=== PATIENT | female | born 1955 | race Caucasian/White ===

== ENCOUNTER 2019-03-26 13:14 | Emergency (ER) | payer SELFPAY ==
[2019-03-26] MEDS ORDERED: IBUPROFEN 400 MG TAB ONE (14:03)
--- NOTE | 2019-03-26 15:12 | ER ---
Nurse's Notes [facility] Name: Joycelyn Abraham Age: 63 yrs Sex: Female : 1955 Arrival Date: 03/26/2019 Time: 13:16 Bed 18 Private MD: Diagnosis: Sprain of medial collateral ligament of left knee;Sprain of other ligament of left ankle;Sprain of unspecified ligament of left ankle Presentation: 03/26 13:23 Presenting complaint: Left knee pain after syncopal episode while standing 4 days ago. hb Pt reports being "under a lot of stress lately.". Transition of care: patient was not received from another setting of care. Onset of symptoms was March 22, 2019. Risk Assessment: Do you want to hurt yourself or someone else? Patient reports no desire to harm self or others. Initial Sepsis Screen: Does the patient meet any 2 criteria? No. Patient's initial sepsis screen is negative. Does the patient have a suspected source of infection? No. Patient's initial sepsis screen is negative. Care prior to arrival: None. 13:23 Method Of Arrival: Ambulatory 13:23 Acuity: RAÚL 3 hb Triage Assessment: 13:30 Injury Description: pt. reports rolling her left ankle. rb1 Historical: - Allergies: 13:25 No Known Allergies; hb - Immunization history:: Adult Immunizations up to date. - Coronavirus screen:: The patient has NOT traveled to [place], [place], or [place] in the past 14 days. The patient has NOT had contact with known/suspected case of Coronavirus? Proceed with normal triage procedures. - Social history:: Smoking status: Patient reports the use of cigarette tobacco products, smokes one-half pack cigarettes per day. - Ebola Screening: : No symptoms or risks identified at this time. Screenin:30 Abuse screen: Denies threats or abuse. Nutritional screening: No deficits noted. rb1 Tuberculosis screening: No symptoms or risk factors identified. Fall Risk None identified. Assessment: 13:30 General: Appears in no apparent distress. comfortable, Behavior is calm, cooperative. rb1 Pain: Complains of pain in left knee, left ankle Pain currently is 3 out of 10 on a pain scale. Pain began Thursday. Neuro: Level of Consciousness is awake, alert, obeys commands, Oriented to person, place, time, situation. Cardiovascular: Capillary refill < 3 seconds is brisk in bilateral fingers. Respiratory: Airway is patent Respiratory effort is even, unlabored, Respiratory pattern is regular, symmetrical. GI: No signs and/or symptoms were reported involving the gastrointestinal system. : No signs and/or symptoms were reported regarding the genitourinary system. Derm: Skin is pink, warm \\T\\ dry. Musculoskeletal: Swelling present in left knee, left ankle. 14:30 Reassessment: Patient appears in no apparent distress at this time. No changes from rb1 previously documented assessment. 15:23 Reassessment: Discharge pending due to Dr. Reed needing to speak with the pt. rb1 15:30 Reassessment: Patient appears in no apparent distress at this time. Patient and/or rb1 family updated on plan of care and expected duration. Pain level reassessed. Patient is alert, oriented x 3, equal unlabored respirations, skin warm/dry/pink. 15:41 Reassessment: Dr. Reed is in another pt. room, discharge pending due to him needing rb1 to speak with the pt. 16:25 Reassessment: Patient appears in no apparent distress at this time. No changes from rb1 previously documented assessment. Pt. was offered crutches but refused them because she has a walker at home that she would rather use. Vital Signs: 13:25 BP 142 / 81; Pulse 75; Resp 16; Temp 97.4; Pulse Ox 100% on R/A; Weight 90.72 kg; hb Height 5 ft. 8 in. (172.72 cm); Pain 3/10; 14:25 BP 113 / 70; Pulse 70; Resp 17; Pulse Ox 98% on R/A; rb1 15:25 BP 132 / 54; Pulse 67; Resp 16; Pulse Ox 96% on R/A; rb1 16:25 BP 137 / 56; Pulse 70; Resp 18; Pulse Ox 96% ; rb1 13:25 Body Mass Index 30.41 (90.72 kg, 172.72 cm) hb ED Course: 13:16 Patient arrived in ED. es 13:25 Theo Reed MD is Attending Physician. kdr 13:25 Triage completed. hb 13:25 Arm band placed on. hb 13:30 Patient has correct armband on for positive identification. Bed in low position. Call rb1 light in reach. Side rails up X 1. Pulse ox on. NIBP on. 13:32 Mirella Zaldivar, RN is Primary Nurse. rb1 15:33 Knee Left 3 View XRAY In Process Unspecified. EDMS 15:33 Ankle Left 3 View XRAY In Process Unspecified. EDMS 16:28 No provider procedures requiring assistance completed. Patient did not have IV access rb1 during this emergency room visit. Administered Medications: 14:03 Drug: Ibuprofen 800 mg Route: PO; 14:45 Follow up: Response: No adverse reaction; Pain is decreased rb1 Outcome: 15:11 Discharge ordered by . kdr 16:28 Discharged to home via wheelchair. rb1 16:28 Condition: stable 16:28 Discharge instructions given to patient, Instructed on discharge instructions, follow up and referral plans. medication usage, Demonstrated understanding of instructions, follow-up care, medications, Prescriptions given X 1. 16:28 Patient left the ED. rb1 Signatures: Dispatcher [employer] EDMS Theo Reed MD MD [facility] Mana Hickman Mirella Zaldivar, RN RN [facility] Vickie Baig RN RN Vini Leon Corrections: (The following items were deleted from the chart) 16:34 16:33 Patient left the ED. rb1 rb1
--- NOTE | 2019-03-26 15:12 | EDPHYS ---
Physician Documentation [facility] Name: Joycelyn Abraham Age: 63 yrs Sex: Female : 1955 Arrival Date: 03/26/2019 Time: 13:16 Bed 18 Private MD: ED Physician Theo Reed HPI: 03/26 15:16 This 63 yrs old Female presents to ER via Ambulatory with complaints of Knee kdr Injury, Foot Injury, Near Syncope. 15:16 The patient presents with decreased range of motion, an injury, pain, that is acute. kdr Context: The problem was sustained at home, resulted from the patient falling, a mis-step, Mirtha patient had a syncopal episode at home on Thursday and does not now exactly what happened. Onset: The symptoms/episode began/occurred suddenly, 2 day(s) ago. Modifying factors: The symptoms are alleviated by nothing. the symptoms are aggravated by movement, weight bearing. Associated signs and symptoms: The patient has no apparent associated signs or symptoms. Treatment prior to arrival includes: no previous treatment. Severity of symptoms: At their worst the symptoms were mild, in the emergency department the symptoms are unchanged. The patient has not experienced similar symptoms in the past. Historical: - Allergies: 13:25 No Known Allergies; hb - Immunization history:: Adult Immunizations up to date. - Coronavirus screen:: The patient has NOT traveled to [place], [place], or [place] in the past 14 days. The patient has NOT had contact with known/suspected case of Coronavirus? Proceed with normal triage procedures. - Social history:: Smoking status: Patient reports the use of cigarette tobacco products, smokes one-half pack cigarettes per day. - Ebola Screening: : No symptoms or risks identified at this time. ROS: 15:16 Constitutional: Negative for fever, chills, and weight loss, Eyes: Negative for injury, kdr pain, redness, and discharge, Neck: Negative for injury, pain, and swelling, Cardiovascular: Negative for chest pain, palpitations, and edema. 15:16 MS/extremity: Positive for injury or acute deformity, decreased range of motion, pain, swelling, tenderness, of the left lateral ankle, posterior aspect of left knee, left medial ankle and left knee. Exam: 15:16 Constitutional: This is a well developed, well nourished patient who is awake, alert, kdr and in no acute distress. Head/Face: Normocephalic, atraumatic. 15:16 Musculoskeletal/extremity: Extremities: grossly normal except: noted in the left lateral ankle, posterior aspect of left knee, left medial ankle and left knee: decreased ROM, pain, swelling, tenderness, Minor - the injuries occurred two days ago and she has been weight bearing, ROM: Circulation is intact in all extremities. Sensation intact. Compartment Syndrome exam of affected extremity: is normal. no pain, no numbness, no tingling, no sensation deficit, no palor, no weak pulses. Vital Signs: 13:25 BP 142 / 81; Pulse 75; Resp 16; Temp 97.4; Pulse Ox 100% on R/A; Weight 90.72 kg; hb Height 5 ft. 8 in. (172.72 cm); Pain 3/10; 14:25 BP 113 / 70; Pulse 70; Resp 17; Pulse Ox 98% on R/A; rb1 15:25 BP 132 / 54; Pulse 67; Resp 16; Pulse Ox 96% on R/A; rb1 16:25 BP 137 / 56; Pulse 70; Resp 18; Pulse Ox 96% ; rb1 13:25 Body Mass Index 30.41 (90.72 kg, 172.72 cm) hb MDM: 15:11 Patient medically screened. kdr 15:38 Data reviewed: vital signs, nurses notes, radiologic studies. Counseling: I had a kdr detailed discussion with the patient and/or guardian regarding: the historical points, exam findings, and any diagnostic results supporting the discharge/admit diagnosis, radiology results, the need for outpatient follow up. 03/26 13:51 Order name: Knee Left 3 View XRAY [facility] 03/26 13:51 Order name: Ankle Left 3 View XRAY [facility] 03/26 15:16 Order name: Didier wrap-joint: Left knee and ankle; Complete Time: 15:42 kdr Administered Medications: 14:03 Drug: Ibuprofen 800 mg Route: PO; 14:45 Follow up: Response: No adverse reaction; Pain is decreased rb1 Disposition: 03/26/19 15:11 Discharged to Home. Impression: Sprain of medial collateral ligament of left knee, Sprain of other ligament of left ankle, Sprain of unspecified ligament of left ankle. - Condition is Stable. - Discharge Instructions: Crutch Use, [id number], Ankle Sprain, [id number], Knee Sprain, [id number]. - Prescriptions for Tylenol- Codeine #3 300-30 mg Oral Tablet - take 2 tablets by ORAL route every 6 hours As needed; 12 tablet. - Medication Reconciliation Form, Thank You Letter, Prescription Opioid Use, Work release form form. - Follow up: Private Physician; When: 2 - 3 days; Reason: If symptoms return, Further diagnostic work-up, Recheck today's complaints, Continuance of care, Re-evaluation by your physician. - Problem is new. - Symptoms have improved. Signatures: Dispatcher [employer] EDMS Theo Reed MD MD kdr Barber, Rebecca RN RN [facility] Vickie Baig RN RN Vini Leon Corrections: (The following items were deleted from the chart) 16:33 15:11 03/26/2019 15:11 Discharged to Home. Impression: Sprain of medial collateral rb1 ligament of left knee; Sprain of other ligament of left ankle; Sprain of unspecified ligament of left ankle. Condition is Stable. Forms are Medication Reconciliation Form, Thank You Letter, Antibiotic Education, Prescription Opioid Use. Follow up: Private Physician; When: 2 - 3 days; Reason: If symptoms return, Further diagnostic work-up, Recheck today's complaints, Continuance of care, Re-evaluation by your physician. Problem is new. Symptoms have improved. kdr
--- NOTE | 2019-03-26 15:48 | RAD REPORT ---
EXAM DESCRIPTION: RAD - Knee Left 3 View - 03/26/2019 3:32 pm CLINICAL HISTORY: PAIN COMPARISON: No comparisons FINDINGS: Mild medial compartment space narrowing is present compatible with mild osteoarthritis. A small suprapatellar joint effusion is present. No acute fracture.
--- NOTE | 2019-03-26 15:50 | RAD REPORT ---
EXAM DESCRIPTION: RAD - Ankle Left 3 View - 03/26/2019 3:32 pm CLINICAL HISTORY: PAIN COMPARISON: No comparisons FINDINGS: No fracture or dislocation is seen. Mild soft tissue swelling surrounding the ankle.
[2019-03-26 16:38] VITALS: TEMP 97.4
[2019-03-26 16:41] VITALS: O2SAT 96
[2019-03-26 16:42] VITALS: BP 137/56
== END 2019-03-26 16:33 | disposition home or self-care (01) ==
LOC: ER 13:14
DX: S93.402A Sprain of unspecified ligament of left ankle, initial encounter (principal); S83.412A Sprain of medial collateral ligament of left knee, initial encounter; W18.30XA Fall on same level, unspecified, initial encounter; Y93.9 Activity, unspecified; Y92.9 Unspecified place or not applicable
CPT/HCPCS: 99284